=== PATIENT | female | born 1960 | race Caucasian/White ===

== ENCOUNTER → 2016-12-20 | Outpatient (CLI) | payer OTHER ==
[~2016-12-20] MED LIST: AMIT10TA6 PO; AMT25 PO; MELO15TA4 PO; NITR-5 PO
[2016-12-20 19:04] LABS: URINE APPEARANCE CLEAR (CLEAR); URINE BILIRUBIN NEG (NEG); URINE COLOR YELLOW; URINE NITRITE POS (NEG); URINE SPECIFIC GRAVITY 1.004 (1.000-1.030); UROBILINOGEN NEG (NEG)
[2016-12-20 19:08] LABS: MANUAL MICROSCOPIC REQUIRED? NO; REVIEW REQ? NO
== END | disposition home or self-care (01) ==
LOC: C.LAB 17:41
PROVIDERS: ATTEND Internal Medicine Geriatric Medicine
DX: R39.9 Unspecified symptoms and signs involving the genitourinary system (principal)

== ENCOUNTER → 2017-01-13 | Outpatient (CLI) | payer OTHER ==
[2017-01-13 17:10] LABS: BASO % 0.4 %; BASO ABS # 0.05 K/uL (0-0.2); COMPLETE YES; EOS % 2.7 %; HEMATOCRIT 43.2 % (37-47); IG% 0.3 %; LYMPH % 22.9 %; LYMPH ABS # 2.64 K/uL (1.2-3.4); MEAN CELL VOLUME 89.1 fL (80-100); MEAN CORPUSCULAR HEMOGLOBIN 30.1 pg (25-34); MEAN CORPUSCULAR HGB CONC 33.8 g/dl (32-36); MEAN PLATELET VOLUME 11.5 fL (7.4-10.4); MONO % 5.2 %; NEUT % 68.5 %; PLATELET COUNT 336 K/uL (130-400); RED BLOOD COUNT 4.85 M/uL (4.2-5.4); WHITE BLOOD COUNT 11.51 K/uL (4.8-10.8)
[2017-01-13 17:21] LABS: ALT/SGPT 28 U/L (12-78); AST/SGOT 18 U/L (15-37); BLOOD UREA NITROGEN 15 mg/dl (7-18); BUN/CREATININE RATIO 18.8 (10-20); CALCIUM 8.8 mg/dl (8.5-10.1); CARBON DIOXIDE 26 mmol/L (21-32); CHLORIDE 109 mmol/L (98-107); CREATININE 0.81 mg/dl (0.60-1.20); GLUCOSE 90 mg/dl (70-99); POTASSIUM 3.7 mmol/L (3.5-5.1); SODIUM 143 mmol/L (136-145)
[2017-01-13 17:23] LABS: ALB/GLOB RATIO 1.3 (0.9-2); ALKALINE PHOSPHATASE 87 U/L (45-117); CHOLESTEROL 225 mg/dl (0-200); HDL CHOLESTEROL 56 mg/dl; LDL CHOLESTEROL CALCULATED 141 mg/dl; TRIGLYCERIDES 140 mg/dl (0-150); VERY LOW DENSITY LIPOPROT CALC 28 mg/dl
== END | disposition home or self-care (01) ==
LOC: C.LABBC 13:53
PROVIDERS: ATTEND Family Medicine
DX: K62.5 Hemorrhage of anus and rectum (principal); E78.5 Hyperlipidemia, unspecified; Z11.59 Encounter for screening for other viral diseases

== ENCOUNTER → 2017-01-25 | Outpatient (CLI) | payer OTHER | END | disposition home or self-care (01) | LOC: C.PAPS 11:33 | PROVIDERS: ATTEND Physician Assistant Medical | DX: Z12.4 Encounter for screening for malignant neoplasm of cervix (principal) ==

== ENCOUNTER → 2017-02-08 | Outpatient (CLI) | payer OTHER ==
--- NOTE | 2017-02-08 09:18 | DIAGNOSTIC IMAGING REPORT ---
ABDOMINAL ULTRASOUND, RIGHT UPPER QUADRANT HISTORY: Abnormal CT scan R93.[address] scan,. COMPARISON: None. FINDINGS: Pancreas: The pancreas demonstrates a normal echotexture. Liver: Fatty infiltration Gallbladder: No gallbladder wall thickening. No gallstones. CBD: 6 mm Right kidney: No hydronephrosis. IMPRESSION: Fatty infiltration of liver. Otherwise negative study Electronically signed by: Jean-Paul Daly M.D. 02/08/2017 9:16 AM Dictated Date/Time: 02/08/2017 9:15 AM
== END | disposition home or self-care (01) ==
LOC: C.ULTR 08:40
PROVIDERS: ATTEND Physician Assistant Medical
DX: R93.2 Abnormal findings on diagnostic imaging of liver and biliary tract (principal); K76.0 Fatty (change of) liver, not elsewhere classified

== ENCOUNTER 2017-06-11 19:42 | Emergency (ER) | payer OTHER ==
[~2017-06-11] VITALS: Ht 162.6 cm; Wt 67.6 kg
[~2017-06-11 19:42] MED LIST changes: -AMT25 PO; -MELO15TA4 PO; -NITR-5 PO
[2017-06-11 19:58] VITALS: TEMP 36.7; Ht 162.6 cm; Wt 67.6 kg
[2017-06-11] MEDS ORDERED: MELO15TA4 PO (20:07)
--- NOTE | 2017-06-11 20:15 | EMERGENCY ROOM VISIT NOTE ---
History Report prepared by Ishan: Becca Solano Under the Supervision of: Dr. Imer Qureshi M.D. First contact with patient: 20:03 Chief Complaint: URINARY SYMPTOMS Stated Complaint: BLADDER INFECTION History of Present Illness The patient is a 57 year old female who presents to the Emergency Room with complaints of worsening urinary symptoms for the past 4 days. She complains of increased urinary frequency, dysuria and low back pain. She tried using Pyridium , which provided no relief and has also been drinking plenty of fluids. The patient admits to a history of interstitial cystitis, for which she takes Amitriptyline. Her last UTI was approximately 1 month ago and she was treated with antibiotics. She denies any history of kidney issues. She also denies any recent fevers, nausea or vomiting. 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 A total of 10 systems reviewed and were otherwise negative. Past Medical & Surgical Medical Problems: (1) Interstitial cystitis (2) Uterine fibroid Social History Smoking Status: Never Smoker Alcohol Use: none Drug Use: none Marital Status: Housing Status: lives with family Occupation Status: employed Current/Historical Medications Scheduled Amitriptyline Hcl (Elavil), 10 MG PO HS Meloxicam (Mobic), 15 MG PO DAILY Nitrofurantoin Monohyd Macrocr (Macrobid), 100 MG PO BID Allergies Coded Allergies: Amoxicillin (Verified Adverse Reaction, Intermediate, N/V, 06/11/17) Fentanyl (Verified Adverse Reaction, Mild, SEVERE VOMITING, 11/17/15) Physical Exam Vital Signs Date Time Temp Pulse Resp B/P (MAP) Pulse Ox O2 Delivery O2 Flow Rate FiO2 06/11/17 21:01 66 18 111/77 97 06/11/17 19:58 36.7 94 18 118/74 93 Room Air Physical Exam GENERAL: Patient is in no acute distress. HEENT: No acute trauma, normocephalic atraumatic, mucous membranes moist, no nasal congestion, no scleral icterus. NECK: No stridor, no adenopathy, no meningismus, trachea is midline. LUNGS: Clear to auscultation bilaterally, no wheeze, no rhonchi, breath sounds equal. HEART: Without murmurs gallops or rubs, regular rate and rhythm. ABDOMEN: Soft, mildly tender over the bladder, bowel sounds positive, no hernias , no peritonitis. BACK: No flank discomfort to percussion. EXTREMITIES: No cyanosis or edema, full range of motion of all the joints without pain or difficulty, no signs for acute trauma. NEUROLOGIC: Oriented x 3, no acute motor or sensory deficits, no focal weakness. SKIN: No rash, no jaundice, no diaphoresis. Medical Decision & Procedures Laboratory Results Test 06/11/17 20:00 Urine Color YELLOW Urine Appearance CLEAR (CLEAR) Urine pH 7.0 (4.5-7.5) Urine Specific [place] 1.006 (1.000-1.030) Urine Protein NEG (NEG) Urine Glucose (UA) NEG (NEG) Urine Ketones NEG (NEG) Urine Occult Blood NEG (NEG) Urine Nitrite NEG (NEG) Urine Bilirubin NEG (NEG) Urine Urobilinogen NEG (NEG) Urine Leukocyte Esterase NEG (NEG) Laboratory results reviewed by me. Medications Administered Medications (Trade) Dose Ordered Sig/Griselda Route Start Time Stop Time Status Last Admin Dose Admin Nitrofurantoin Macrocrystals (Macrobid Cap) 100 mg ONE ONCE PO 06/11/17 20:45 06/11/17 20:46 DC 06/11/17 20:57 100 MG ED Course 2003: The patient was evaluated in room 2003. A complete history and physical exam was performed. 2039: I reevaluated the patient. She is feeling well and resting comfortably. I discussed her results and discharge instructions and she verbalized complete understanding and agreement. 2044: Macrobid 100 mg PO. Medical Decision The differential diagnoses considered include UTI, interstitial cystitis and urethral irritation. The patient presents with feelings like she has a UTI. She also carries a history of interstitial cystitis. Her urinalysis is clear, the urine culture is pending. The patient is quite convinced that she has a urinary tract infection. I have agreed to try a short course of Macrobid as we await the urine culture. She apparently has felt like this in the past and done well with antibiotics. The patient was given a dose of oral Macrobid. She is being discharged on the same medication, she was encouraged to return for worsening symptoms. Medication Reconcilliation Current Medication List: was personally reviewed by me Blood Pressure Screening Patient's blood pressure: Normal blood pressure Blood pressure disposition: Did not require urgent referral Impression Primary Impression: Dysuria Scribe Attestation The scribe's documentation has been prepared under my direction and personally reviewed by me in its entirety. I confirm that the note above accurately reflects all work, treatment, procedures, and medical decision making performed by me. Departure Information Dispostion Home / Self-Care Prescriptions Nitrofurantoin Monohyd Macrocr (Macrobid) 100 Mg Cap 100 MG PO BID, #10 CAP Prov: Imer Qureshi M.D. 06/11/17 Referrals Valerie Nguyễn,P.A. (PCP) Patient Instructions My [facility] Additional Instructions macrobid 2x per day for 5 days fluids follow with luly odell return for fever or if worsening
[2017-06-11 20:21] LABS: URINE APPEARANCE CLEAR (CLEAR); URINE BILIRUBIN NEG (NEG); URINE COLOR YELLOW; URINE NITRITE NEG (NEG); URINE SPECIFIC GRAVITY 1.006 (1.000-1.030); UROBILINOGEN NEG (NEG)
[2017-06-11 20:26] LABS: MANUAL MICROSCOPIC REQUIRED? NO; REVIEW REQ? NO
[2017-06-11] MEDS ORDERED: NITR-5 PO (20:42)
[2017-06-11] MEDS ORDERED: NITROFURANTOIN MONOHYDRATE 100 MG CAP PO ONE (20:45)
[2017-06-11 21:01] VITALS: BP 111/77; PULSE 66; O2SAT 97
== END 2017-06-11 20:57 | disposition home or self-care (01) ==
LOC: C.EDB 19:43 → C.EDA 20:57
DX: R30.0 Dysuria (principal); Z87.440 Personal history of urinary (tract) infections

== ENCOUNTER 2017-06-16 09:37 | Emergency (ER) | payer OTHER ==
[~2017-06-16] VITALS: Ht 162.6 cm; Wt 67.7 kg
[~2017-06-16 09:37] MED LIST changes: +MELO15TA4 PO; +NITR-5 PO
[2017-06-16 09:58] VITALS: TEMP 36.6; Ht 162.6 cm; Wt 67.7 kg
[2017-06-16] MEDS ORDERED: AMT25 PO (10:44)
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
[2017-06-16 12:14] VITALS: BP 127/79; PULSE 73; O2SAT 95
== END 2017-06-16 12:14 | disposition home or self-care (01) ==
LOC: C.EDB 09:38
DX: M54.2 Cervicalgia (principal); V43.52XA Car driver injured in collision with other type car in traffic accident, initial encounter; Y92.410 Unspecified street and highway as the place of occurrence of the external cause; Z87.891 Personal history of nicotine dependence; Z82.49 Family history of ischemic heart disease and other diseases of the circulatory system; Z79.899 Other long term (current) drug therapy

== ENCOUNTER → 2017-06-28 | Outpatient (CLI) | payer OTHER ==
[~2017-06-28] MED LIST changes: -AMIT10TA6 PO; +AMT25 PO
[2017-06-28 16:45] LABS: BASO % 0.6 %; BASO ABS # 0.06 K/uL (0-0.2); EOS % 4.1 %; HEMATOCRIT 41.2 % (37-47); IG% 0.2 %; LYMPH % 25.6 %; LYMPH ABS # 2.44 K/uL (1.2-3.4); MEAN CELL VOLUME 89.6 fL (80-100); MEAN CORPUSCULAR HEMOGLOBIN 30.4 pg (25-34); MEAN PLATELET VOLUME 10.6 fL (7.4-10.4); MONO % 6.9 %; NEUT % 62.6 %; PLATELET COUNT 316 K/uL (130-400); WHITE BLOOD COUNT 9.52 K/uL (4.8-10.8)
[2017-06-29 14:38] LABS: COMPLETE YES
== END | disposition home or self-care (01) ==
LOC: C.LABBC 12:45
PROVIDERS: ATTEND Physician Assistant Medical
DX: D72.829 Elevated white blood cell count, unspecified (principal); R79.9 Abnormal finding of blood chemistry, unspecified

== ENCOUNTER 2017-11-24 06:01 | Observation (INO) | payer OTHER ==
[2017-11-15 09:14] VITALS: BMI 25.0
--- NOTE | 2017-11-15 09:51 | PAT Medication Instructions ---
Service Date Nov 15, 2017. Current Home Medication List Amitriptyline HCl (Amitriptyline HCl), 25 MG PO HS Xpkyldn-Yxaquzyjm-Jlhn (Calcium Magnesium & Zinc), 1 TAB PO HS Fish Oil (Warren-3), 1 CAP PO HS Gabapentin (Neurontin), 300 MG PO TID Ibuprofen (Advil), 400 MG PO PRN Meloxicam (Mobic), 15 MG PO DAILY PRN for PRN [Biotin], 1 TAB PO HS [Nicotine ], 1 DOSE PO PRN Medication Instructions For Your Scheduled Surgery -Contact your surgeon for instructions for: Ibuprofen (Advil), 400 MG PO PRN Meloxicam (Mobic), 15 MG PO DAILY PRN for PRN - Hold the following medications 2 weeks prior to surgery: Fish Oil (Warren-3), 1 CAP PO HS - Hold the following medications the morning of surgery: [Nicotine ], 1 DOSE PO PRN (if needed) - Take the following medications the morning of surgery with a sip of water: Gabapentin (Neurontin), 300 MG PO TID - Take the following medications as scheduled the night before surgery: Qszdjxp-Fufhtcejh-Rzpm (Calcium Magnesium & Zinc), 1 TAB PO HS Gabapentin (Neurontin), 300 MG PO TID [Biotin], 1 TAB PO HS [Nicotine ], 1 DOSE PO PRN (if needed) Amitriptyline HCl (Amitriptyline HCl), 25 MG PO HS If you have any questions please call us at [phone] or [phone] or [phone]
--- NOTE | 2017-11-15 10:36 | DIAGNOSTIC IMAGING REPORT ---
CHEST 2 VIEWS ROUTINE CLINICAL HISTORY: Preoperative evaluation. COMPARISON STUDY: No previous studies for comparison. FINDINGS: Lung volumes are normal. Lungs are clear. No pneumothorax or pleural effusion is noted. Cardiomediastinal silhouette is normal. Pulmonary vascularity is normal. IMPRESSION: No acute cardiopulmonary findings. Electronically signed by: Daniel Stanley M.D. 11/15/2017 10:35 AM Dictated Date/Time: 11/15/2017 10:33 AM
[2017-11-15 10:37] LABS: BASO % 0.5 %; BASO ABS # 0.05 K/uL (0-0.2); EOS % 3.1 %; EOS ABS # 0.29 K/uL (0-0.5); HEMATOCRIT 42.7 % (37-47); HEMOGLOBIN 14.5 g/dL (12.0-16.0); IG# 0.03 K/uL (0.00-0.02); LYMPH % 19.9 %; LYMPH ABS # 1.87 K/uL (1.2-3.4); MEAN CELL VOLUME 88.2 fL (80-100); MEAN PLATELET VOLUME 10.3 fL (7.4-10.4); MONO % 7.1 %; MONO ABS # 0.67 K/uL (0.11-0.59); NEUT % 69.1 %; NEUT ABS # 6.47 K/uL (1.4-6.5); PLATELET COUNT 319 K/uL (130-400); RED CELL DISTRIBUTION WIDTH CV 13.7 % (11.5-14.5); RED CELL DISTRIBUTION WIDTH SD 44.5 fL (36.4-46.3); WHITE BLOOD COUNT 9.38 K/uL (4.8-10.8)
[2017-11-15 10:46] LABS: INR 0.9 (0.9-1.1); PTT PATIENT 29.9 SECONDS (21.0-31.0)
[2017-11-15 11:32] LABS: CALCIUM 8.9 mg/dl (8.5-10.1); CREATININE 0.55 mg/dl (0.60-1.20)
[~2017-11-24] VITALS: Ht 162.6 cm; Wt 67.4 kg
[2017-11-24] VITALS (15 sets, daily range): BP systolic 116–160; BP diastolic 61–86; PULSE 61–84; TEMP 36.5–36.7; O2SAT 95–100; Ht 162.6 cm; Wt 67.4 kg
[~2017-11-24 06:01] MED LIST changes: +BIOTPOW17 PO; +CALC1TAB27 PO; +CEFAZOLIN 1000MG IV PUSH 5 ML IV SCH; +GABA-113 PO; +IBUP-1050 PO; +LACTATED RINGER'S 1000ML IV SCH; +MELO-84 PO; -MELO15TA4 PO; +NICOTINE PO; -NITR-5 PO; +OMEG10007 PO; +SCOPOLAMINE 1.5 MG TDSY TD SCH
[2017-11-24] MEDS ORDERED: IPRA1AER2 INH (06:33)
[2017-11-24] MEDS ORDERED: SYMIN/8045 INH (06:33)
[2017-11-24] MEDS ORDERED: MIDAZOLAM HCL 1 MG/ML 2ML VIAL ONE (06:40)
[2017-11-24] MEDS ORDERED: FENTANYL CITRATE INJ 50 MCG/1 ML 2 ML VIAL ONE ×2 (06:41→08:40)
[2017-11-24] MEDS ORDERED: BACITRACIN 50000 UNIT VIAL ONE (07:28)
[2017-11-24] MEDS ORDERED: SODIUM CHLORIDE 0.9% PF 50 ML VIAL ONE (07:28)
--- NOTE | 2017-11-24 07:30 | History & Physical Bridge Note ---
H&P Re-Evaluation Bridge Note: I have examined the patient, reviewed the History & Physical and in the interval since the performance of the History & Physical I have noted the following changes of clinical significance: No changes noted
--- NOTE | 2017-11-24 07:31 | History and Physical ---
History & Physical Date Nov 24, 2017. Chief Complaint Neck and arm pain History of Present Illness The patient is a 57 year old female with complaints of neck and arm pain Past Medical/Surgical History Medical Problems: (1) Interstitial cystitis (2) Uterine fibroid Additional History Hepatic Disease: No Endocrine Disorder: No Kidney Disease: No Hypertension: No Heart Disease: No Bleeding Tendencies: No Infectious Diseases: No Allergies Coded Allergies: Erythromycin (Verified Allergy, Unknown, hives, N/V, 11/24/17) Latex1 -Allergic Contact Dermititis (Verified Allergy, Unknown, ITCHY WITH LATEX GLOVES, 11/24/17) Fentanyl (Verified Adverse Reaction, Mild, SEVERE VOMITING, 11/24/17) Home Medications Scheduled Amitriptyline HCl (Amitriptyline HCl), 25 MG PO HS Budesonide/Formoterol Fumarate (Symbicort 80/4.5 Inhaler), 2 PUFFS INH BID Dfrpxty-Jihrojmye-Jyuy (Calcium Magnesium & Zinc), 1 TAB PO HS Fish Oil ([place]ox-3), 1 CAP PO HS Ibuprofen (Advil), 400 MG PO PRN Ipratropium-Albuterol (Combivent Respimat), 1 PUFFS INH QID [Biotin], 1 TAB PO HS [Nicotine ], 1 DOSE PO PRN Scheduled PRN Meloxicam (Mobic), 15 MG PO DAILY PRN for PRN Physical Examination Skin: warm/dry, no rash Eyes: normal inspection, EOMI, sclerae normal ENT: normal ENT inspection, pharynx normal Head: normocephalic, atraumatic Neck: supple, no adenopathy, trachea midline Respiratory/Chest: lungs clear, normal breath sounds, no respiratory distress Cardiovascular: regular rate, rhythm, no edema, no murmur Abdomen / GI: normal bowel sounds, non tender Back: normal inspection Extremities: normal inspection, normal range of motion Neurologic/Psych: no motor/sensory deficits, alert, normal reflexes, oriented x 3 Diagnosis Cervical spinal stenosis Plan of Treatment Anterior cervical discectomy and fusion C4 5 with corpectomy of C6
[2017-11-24] MEDS ORDERED: PROPOFOL IV EMULSION 10 MG/ML 100 ML VIAL IV ONE (07:36)
[2017-11-24] MEDS ORDERED: REMIFENTANIL 1 MG VIAL ONE ×3 (07:39→09:18)
[2017-11-24] MEDS ORDERED: HYDROmorphone INJ 2 MG/ML SYR/VIAL ONE ×3 (08:21→10:08)
[2017-11-24] MEDS ORDERED: DEXAMETHASONE SOD INJ 4 MG/ML VIAL ONE (08:31)
[2017-11-24] MEDS ORDERED: RANITIDINE HCL 25 MG/ML INJ ONE (08:31)
[2017-11-24] MEDS ORDERED: LARYING-O-JET KIT (LTA) ONE (08:31)
[2017-11-24] MEDS ORDERED: METOCLOPRAMIDE HCL INJ 5 MG/ML 2 ML VIAL ONE (08:31)
[2017-11-24] MEDS ORDERED: DiphenhydrAMINE HCL 50 MG/ML VIAL ONE (08:31)
[2017-11-24] MEDS ORDERED: PROPOFOL IV EMULSION 10 MG/ML 20 ML VIAL IV ONE (08:44)
[2017-11-24] MEDS ORDERED: PROMETHAZINE HCL INJ 12.5 MG in SODIUM CHLORIDE 0.9% 50ML 50 ML IV PRN (09:15)
[2017-11-24] MEDS ORDERED: ONDANSETRON INJ 2 MG/ML 2 ML VIAL IV PRN (09:15)
[2017-11-24] MEDS ORDERED: ATROPINE SULFATE 0.1 MG/ML 5ML SYR IV PRN (09:15)
[2017-11-24] MEDS ORDERED: EpHEDrine SULFATE INJ 50 MG/ML AMP IV PRN (09:15)
[2017-11-24] MEDS ORDERED: ACETAMINOPHEN 1000 MG/100 ML IV IV ONE (09:45)
--- NOTE | 2017-11-24 09:51 | [facility] Operative Report ---
Operative Report Operative Date Nov 24, 2017. Pre-Operative Diagnosis Cervical Spinal Stenosis Post-Operative Diagnosis same as preoperative Procedure(s) Performed #1 anterior cervical corpectomy C6. #2 anterior cervical discectomy bilateral foraminotomies C4 5. #3 anterior cervical arthrodesis C4-C5 and C5 to C7. #4 placement peek cage 7 mm in height at C4 5 and 21 mm in height at C5 to C7. #5 placement locally harvested morcellized autograft combined with osteon bone graft in the cages. #6 application franks plate and screws C4 to C7. Surgeon Dr. Spencer Skelton Residential Coordinator Surgeon(s) Maria D Saenz PA-C Findings Severe spinal stenosis Specimens None, Per Surgeon Description of Procedure Patient was met with him preoperatively case discussed all questions addressed. After informed consent obtained patient was taken to the operative suite and underwent intubation placement supine position on the Rafael table with the head in the Kim head baggage porter. All bony prominences were well-padded eyes inspected to ensure no external pressure placed upon them. This point the anterior cervical spine was prepped and draped in the normal sterile fashion. With the assistance of fluoroscopy identified the see 56 disc space and a transverse incision was placed along the right anterior aspect of the cervical spine overlying this region. Sharp dissection with the assistance of bipolar electrocautery was performed down to and exposing the anterior cervical spine from C4 to C7. Self retaining retractor was placed. Then performed a complete discectomy of C5 6 out to the uncovertebral joints bilaterally followed by C6 7. Heraclio distracting pins were placed in C5 and C7 to distract across the C6 vertebral body. A complete corpectomy was performed and this included removal of all posterior annular fibers longitudinal ligament and bilateral foraminotomies. Endplates were then burred to subcortical bleeding bone and a 21 mm peek cage filled with ostially on and locally harvested morcellized autograft and tapped in position. Distracting apparatus was removed and I proceeded to C4 5. A complete discectomy was performed out to the uncovertebral joints bilaterally. This included removal of all posterior annular fibers longitudinal ligament and foraminotomies. Endplates burred to subcortical bleeding bone and a 7 mm peek cage filled with ostially and an locally harvested morcellized autograft tapped in position. Franks plate and screws was then applied to the assistance of fluoroscopy. The incision was then copiously irrigated and explored to ensure there was no damage to surrounding structure remaining bleeding. A 10 round GAMAL drain inserted. Incision then closed with 2-0 Vicryl in the fascia 4-0 Monocryl for final closure Steri-Strips dressing was placed. Patient with continued PACU stable condition. Please note Maria D Tijerina was present throughout the entire procedure involved in patient positioning complex portions of the surgery and final skin closure.. I attest to the content of the Intraoperative Record and any orders documented therein. Any exceptions are noted below.
[2017-11-24] MEDS ORDERED: DO NOT ADMINISTER PNEUMOCOCCAL VACCINE PRN (10:00)
[2017-11-24] MEDS ORDERED: MAGNESIUM HYDROXIDE SUSP 30 ML UDC PO PRN (10:00)
[2017-11-24] MEDS ORDERED: RACEPINEPHRINE 2.25% NEBU SOLN 0.5 ML VIAL INH PRN (10:00)
[2017-11-24] MEDS ORDERED: LORAZEPAM 0.5 MG TAB PO PRN (10:00)
[2017-11-24] MEDS ORDERED: DEXAMETHASONE INJ 8 MG in SYRINGE 0 ML IV PRN (10:00)
[2017-11-24] MEDS ORDERED: HYDROmorphone INJ 0.5 MG/0.5 ML SYR IV PRN (10:00)
[2017-11-24] MEDS ORDERED: LORAZEPAM INJ 0.5 MG in SYRINGE 0.75 ML IV PRN ×2 (10:00→16:30)
[2017-11-24] MEDS ORDERED: CEFAZOLIN IV 1,000 MG in DEXTROSE 5% 50ML 50 ML IV SCH (10:00)
[2017-11-24] MEDS ORDERED: DiphenhydrAMINE HCL 50 MG/ML VIAL IV PRN (10:00)
[2017-11-24] MEDS ORDERED: NALOXONE HCL 0.4 MG/1 ML VIAL/CARP IV PRN (10:00)
[2017-11-24] MEDS ORDERED: DO NOT ADMINISTER FLU VACCINE PRN (10:00)
[2017-11-24] MEDS ORDERED: NEOSTIGMINE METHYLSULFATE 1 MG/ML 10ML VIAL ONE (10:07)
[2017-11-24] MEDS ORDERED: GLYCOPYRROLATE INJ 0.2 MG/ML VIAL ONE (10:07)
[2017-11-24] MEDS ORDERED: ONDANSETRON INJ 2 MG/ML 2 ML VIAL ONE (10:07)
[2017-11-24] MEDS: HYDROmorphone INJ 0.5 MG/0.5 ML SYR IV PRN ×3 (10:09→10:19)
--- NOTE | 2017-11-24 10:56 | Anesthesiology Progress Note ---
Anesthesia Post Op Note Date & Time Nov 24, 2017 at 10:56 Vital Signs Pain Intensity: 3 Vital Signs Past 12 Hours Date Time Temp Pulse Resp B/P (MAP) Pulse Ox O2 Delivery O2 Flow Rate FiO2 11/24/17 10:50 69 16 155/98 97 Nasal Cannula 4 11/24/17 10:40 66 16 156/86 96 Nasal Cannula 4 11/24/17 10:30 36.1 65 16 154/88 98 Nasal Cannula 4 11/24/17 10:20 61 16 155/82 98 Oxymask 10 11/24/17 10:10 61 16 149/78 100 Oxymask 10 11/24/17 10:01 36.0 66 16 153/79 97 Oxymask 10 11/24/17 06:41 36.6 64 20 116/62 (80) 95 Room Air Notes Mental Status: alert / awake / arousable, participated in evaluation Pt Amnestic to Procedure: Yes Nausea / Vomiting: adequately controlled Pain: adequately controlled Airway Patency, RR, SpO2: stable & adequate BP & HR: stable & adequate Hydration State: stable & adequate Anesthetic Complications: no major complications apparent
[2017-11-24] MEDS: ONDANSETRON INJ 2 MG/ML 2 ML VIAL IV PRN ×2 (12:00→12:39)
--- NOTE | 2017-11-24 12:00 | DIAGNOSTIC IMAGING REPORT ---
LUMBAR SPINE, INTRAOPERATIVE FLUOROSCOPY HISTORY: C4-C5 ACDF.. FLUOROSCOPY TIME: 8 seconds. FINDINGS: Intraoperative fluoroscopy was provided for the lumbar spine. 2 fluoroscopic spot images were obtained. Anterior cervical discectomy and fusion from C4 through C7 with a C6 corpectomy. The hardware appears intact. IMPRESSION: Fluoroscopy provided for a C4-C7 ACDF.. Electronically signed by: Junior Colin M.D. 11/24/2017 11:58 AM Dictated Date/Time: 11/24/2017 11:53 AM
--- NOTE | 2017-11-24 12:11 | Discharge Instructions ---
Discharge Instructions Date of Service Nov 24, 2017. Admission Reason for Admission: Cervical Spinal Stenosis C4-5, C6 Discharge Discharge Diagnosis / Problem: cervical stenosis Discharge Goals Goal(s): Improve function Activity Recommendations Activity Limitations: per Instructions/Follow-up section . Instructions / Follow-Up Instructions / Follow-Up ACTIVITY RECOMMENDATIONS: SELF CARE INSTRUCTIONS AFTER CERVICAL FUSIONS 1. No smoking. Smoking drastically decreases the chance of a solid fusion. 2. No bending, lifting more than 5 pounds, or twisting (roll like a log when turning in bed). 3. You may shower 3 days after surgery. Thoroughly dry wound. Do not soak in the tub. 4. Cervical collar: Must be worn at all times including sleeping. You may remove the brace only to bath, eat and if you are sitting in a recliner. 5. Please walk as much as you can for exercise. Gradually increase the distance that you walk as your endurance increases. SPECIAL CARE INSTRUCTIONS: VERY IMPORTANT TO READ AND REVIEW A. Do not take any anti-inflammatory medications (i.e. Indocin, Advil, Aspirin, Naprosyn, Aleve, Motrin, etc.) as these may inhibit the chance of a solid fusion. Tylenol is okay to take. B. Your surgical incision has been closed with a cosmetic suture under the skin that will dissolve in about 6 weeks. In 14 days, you can use a pair of clean scissors and cut the suture that is left outside of the skin at the ends of your incision. C. Complications are uncommon, but please contact us if you have any signs or symptoms of: 1. wound infection (fever higher than 102.5 degrees F, redness, separation of wound, drainage, or increasing pain from the incision) 2. blood clots in legs (pain, swelling, redness and warmth in legs) 3. urinary tract infection (fever higher than 102.5 degrees, burning upon urination or increased frequency of urination) 4. nerve problems (inability to walk on your toes or heels, numbness, loss of bowel or bladder control) 5. any other symptoms that concern you. D. Please call the office at if you have any concerns or questions about your operation or recovery. MANAGING PAIN AFTER SPINAL SURGERY 1. Narcotic medication is intended for short-term use and will be provided for surgical pain. Surgical pain usually lasts for a period of 4-6 weeks. Narcotic medication includes Percocet, Vicodin, Darvocet, Tylenol #3 or Lortab. 2. Longer-term pain is more appropriately treated with non-narcotic medication such as Tylenol ES. 3. Muscle spasm is not appropriately treated with narcotics. Muscle relaxers such as Soma, Flexeril or Skelaxin can be used along with Tylenol ES. 4. Remember that we all live with some "aches and pains". This is not unusual or uncommon after an injury or as we get older. 5. We will provide appropriate medication within the normal guidelines of their prescribed use. We will also be very cautious and aware of potential abuse and extended duration of patients' medication needs. 6. Please allow 2-3 days to process refills. Prescriptions will not be mailed but must be picked up at the office. FOLLOW UP VISIT: Keep your scheduled follow-up appointment. Any questions, please call the office at . Current Hospital Diet Patient's current hospital diet: Clear Liquid Diet Discharge Diet Recommended Diet: Regular Diet Procedures Procedures Performed: #1 anterior cervical corpectomy C6. #2 anterior cervical discectomy bilateral foraminotomies C4 5. #3 anterior cervical arthrodesis C4-C5 and C5 to C7. #4 placement peek cage 7 mm in height at C4 5 and 21 mm in height at C5 to C7. #5 placement locally harvested morcellized autograft combined with osteon bone graft in the cages. #6 application clayton plate and screws C4 to C7. Pending Studies Studies pending at discharge: no Medical Emergencies . Who to Call and When: Medical Emergencies: If at any time you feel your situation is an emergency, please call 911 immediately. . Non-Emergent Contact Non-Emergency issues call your: Primary Care Provider . "Provider Documentation" section prepared by Spencer Skelton. . VTE Core Measure Inpt VTE Proph given/why not?: Con Hernandez, SCD's
[2017-11-24] MEDS ORDERED: SCOPOLAMINE 1.5 MG TDSY TD SCH (12:30)
[2017-11-24] MEDS ORDERED: HYDROmorphone INJ 1 MG/ML SYR IV PRN (12:30)
[2017-11-24] MEDS ORDERED: PROMETHAZINE HCL INJ 25 MG in SODIUM CHLORIDE 0.9% 50ML 50 ML IV PRN (13:00)
[2017-11-24] MEDS ORDERED: NURSING VERBAL MED ORDER ONE (13:00)
[2017-11-24] MEDS ORDERED: PROMETHAZINE HCL INJ 25 MG in SODIUM CHLORIDE 0.9% 50ML 50 ML IV ONE (13:15)
[2017-11-24] MEDS: LACTATED RINGER'S 1000ML 1,000 ML IV SCH (13:45)
[2017-11-24] MEDS: IPRATROPIUM BROMIDE/ALBUTEROL respimat INH INH SCH ×3 (13:49→21:00)
[2017-11-24] MEDS ORDERED: IV FLUIDS COMPLETED PRN (14:00)
[2017-11-24] MEDS: CHECK SCOPOLAMINE PATCH PLACEMENT SCH ×2 (15:17→23:30)
[2017-11-24] MEDS: CEFAZOLIN IV 1,000 MG in SYRINGE 0 ML IV SCH ×2 (15:34→23:29)
[2017-11-24] MEDS: DEXAMETHASONE INJ 6 MG in SYRINGE 0 ML IV SCH ×2 (15:35→23:29)
[2017-11-24] MEDS: ACETAMINOPHEN IV 1,000 MG in EMPTY BAG 0 ML IV PRN ×2 (15:51→23:29)
[2017-11-24] MEDS ORDERED: CHECK SCOPOLAMINE PATCH PLACEMENT SCH (16:00)
[2017-11-24] MEDS ORDERED: LORAZEPAM INJ 0.5 MG in SYRINGE 0.25 ML IV PRN (16:00)
[2017-11-24] MEDS ORDERED: METOCLOPRAMIDE HCL INJ 5 MG/ML 2 ML VIAL IV. STA (16:00)
[2017-11-24] MEDS: BUDESONIDE/FORMOTEROL FUMARATE 80/4.5 60 PUFFS/INHALER INH SCH (21:00)
[2017-11-24] MEDS ORDERED: AMITRIPTYLINE HCL 25 MG TAB PO SCH (21:00)
[2017-11-24] MEDS: DOCUSATE SODIUM 100 MG CAP PO SCH (21:25)
[2017-11-25] VITALS (10 sets, daily range): BP systolic 114–136; BP diastolic 55–70; PULSE 67–83; TEMP 36.7–36.9; O2SAT 94–99
[2017-11-25] MEDS: LACTATED RINGER'S 1000ML 1,000 ML IV SCH (00:02)
[2017-11-25] MEDS: CHECK SCOPOLAMINE PATCH PLACEMENT SCH (08:04)
[2017-11-25] MEDS: BUDESONIDE/FORMOTEROL FUMARATE 80/4.5 60 PUFFS/INHALER INH SCH (08:06)
[2017-11-25] MEDS: IPRATROPIUM BROMIDE/ALBUTEROL respimat INH INH SCH ×2 (08:06→13:53)
[2017-11-25] MEDS: CEFAZOLIN IV 1,000 MG in SYRINGE 0 ML IV SCH (08:17)
[2017-11-25] MEDS: DOCUSATE SODIUM 100 MG CAP PO SCH (08:17)
[2017-11-25] MEDS: DEXAMETHASONE INJ 6 MG in SYRINGE 0 ML IV SCH (08:18)
[2017-11-25] MEDS ORDERED: CeleBREX 200 MG CAP PO SCH (09:00)
[2017-11-25] MEDS ORDERED: NURSING DECISION MEDICATION ORDER SCH (09:00)
[2017-11-25] MEDS ORDERED: COUGH DROP (SUGAR FREE) LOZ 24 LOZ/1 BOX LOZ PRN (09:00)
[2017-11-25] MEDS: ACETAMINOPHEN IV 1000MG/100ML IV PRN ×2 (09:10→09:13)
--- NOTE | 2017-11-25 09:49 | Anesthesiology Progress Note ---
Anesthesia Post Op Note Date & Time Nov 25, 2017 at 09:48 Vital Signs Vital Signs Past 12 Hours Date Time Temp Pulse Resp B/P (MAP) Pulse Ox O2 Delivery O2 Flow Rate FiO2 11/25/17 07:38 36.8 80 15 122/62 (82) 95 Room Air 11/25/17 07:30 69 16 97 Room Air 11/25/17 05:30 36.9 83 16 114/62 97 Nasal Cannula 2.0 Humidified Oxygen 11/25/17 03:52 79 16 99 Nasal Cannula 3.0 11/25/17 03:30 36.7 72 18 136/70 98 Nasal Cannula 4.0 11/25/17 01:30 36.9 77 16 127/55 99 Nasal Cannula 4.0 Humidified Oxygen 11/24/17 23:13 73 19 98 Nasal Cannula 4.0 Notes Mental Status: alert / awake / arousable, participated in evaluation Pt Amnestic to Procedure: Yes Nausea / Vomiting: adequately controlled Pain: adequately controlled Airway Patency, RR, SpO2: stable & adequate BP & HR: stable & adequate Hydration State: stable & adequate Anesthetic Complications: no major complications apparent
--- NOTE | 2017-11-25 13:36 | Discharge Summary ---
Orthopedic Discharge Summary Admission Date/Reason Nov 24, 2017 at 09:55 Cervical Spinal Stenosis C4-5, C6. Discharge Date/Disposition Nov 25, 2017 Home Diagnosis Principal Diagnosis: Cervical spinal stenosis Admission Physical Exam As per Admitting History & Physical. Hospital Course Patient underwent multilevel anterior cervical decompression and fusion. She tolerated this well. Unfortunately postop she had several hours of severe nausea and vomiting. This required the attention of anesthesia and multiple medications. At this time she is more comfortable. She is swallowing without difficulty. She has no hoarseness. Her arm symptoms are markedly improved. Subsequently she was discharged home. Discharge orders and instructions can be found in the chart for further review. Discharge Instructions Please refer to the electronic Patient Visit Report (Discharge Instructions) for additional information.
[2017-11-26] MEDS ORDERED: BISACODYL 10 MG SUPP PR PRN (06:00)
[2017-11-26] MEDS ORDERED: BISACODYL 5 MG TABEC PO PRN (06:00)
[2017-11-26] MEDS ORDERED: POLYETHYLENE (MIRALAX) 17 GM PACK PO SCH (09:00)
== END 2017-11-25 15:25 | disposition home or self-care (01) ==
LOC: C.ACU 06:01 → C.3E 09:55 → ENRESERV 11:01
PROVIDERS: ADMIT Orthopaedic Surgery Orthopaedic Surgery of the Spine; ATTEND Orthopaedic Surgery Orthopaedic Surgery of the Spine
DX: M48.02 Spinal stenosis, cervical region (principal); M19.90 Unspecified osteoarthritis, unspecified site; N30.10 Interstitial cystitis (chronic) without hematuria; Z87.891 Personal history of nicotine dependence

== ENCOUNTER → 2017-12-08 | Outpatient (CLI) | payer OTHER ==
[~2017-12-08] MED LIST changes: -CEFAZOLIN 1000MG IV PUSH 5 ML IV SCH; -GABA-113 PO; -IBUP-1050 PO; +IPRA1AER2 INH; -LACTATED RINGER'S 1000ML IV SCH; -MELO-84 PO; -SCOPOLAMINE 1.5 MG TDSY TD SCH; +SYMIN/8045 INH
--- NOTE | 2017-12-08 12:09 | DIAGNOSTIC IMAGING REPORT ---
CHEST 2 VIEWS ROUTINE CLINICAL HISTORY: [id number] Former smokerrecent cervical spine surgery. ?a COMPARISON STUDY: 11/15/2017 FINDINGS: The bones soft tissues and hemidiaphragms are normal. The cardiomediastinal silhouette is normal. The lungs are clear. The pulmonary vasculature is normal. IMPRESSION: Negative chest. The above report was generated using voice recognition software. It may contain grammatical, syntax or spelling errors. Electronically signed by: Jean-Paul Daly M.D. 12/08/2017 12:08 PM Dictated Date/Time: 12/08/2017 12:07 PM
== END | disposition home or self-care (01) ==
LOC: C.RADBC 11:47
PROVIDERS: ATTEND Physician Assistant Medical
DX: R05 Cough (principal); Z87.891 Personal history of nicotine dependence